=== PATIENT | female | born 1965 | race Caucasian/White ===

== ENCOUNTER 2016-10-01 16:15 | Outpatient (RCR) | payer MEDICARE, OTHER | END 2016-10-01 18:00 | disposition home or self-care (01) | LOC: PT 16:15 | PROVIDERS: ATTEND Podiatrist | DX: T81.31XD Disruption of external operation (surgical) wound, not elsewhere classified, subsequent encounter (principal) | CPT/HCPCS: 97001; 97530; 97597; 97605; G8990; G8991 ==

== ENCOUNTER 2017-01-05 11:29 | Emergency (ER) | payer MEDICARE ==
[~2017-01-05] VITALS: Ht 172.7 cm; Wt 118.2 kg
[~2017-01-05 11:29] MED LIST: ACET1TAB43 PO; ALBU8.5H2 IH; AMIT100T2 PO; CLON0.5T3 PO; GBPN600T PO; LSNP20T PO; METF-759 PO; MULT-890 PO; OMG1KC PO; OXAP600T PO; PANT40SU PO; PARO30TA74 PO; RSP3T PO; TRAM100C3 PO
--- OUTSIDE RECORDS SUMMARY | 2017-01-05 11:33 | XMS REPORT | Summary of Care ---
Author Author Ankit Lopez M.D. Organization Unknown Address [address], [place] [id number] Phone Unavailable Care Team Providers Care Smt Machine Operator Name Role Phone Abdon Zuluaga M.D. Unavailable Unavailable Alex Lopez M.D. Unavailable Unavailable Roby Bray Unavailable Unavailable Unavailable Unavailable Functional Status Name Dates Details Functional status health issues are not documented Status: Name Dates Details Cognitive status health issues are not documented Status: Problems Name Dates Details Bipolar disorder (manic depression) (296.80, F31.9) Status: Active Chronic obstructive pulmonary disease (496, J44.9) Status: Active Foot pain (729.5, M79.673) Status: Active GERD (gastroesophageal reflux disease) (530.81, K21.9) Status: Active Hyperlipidemia (272.4, E78.5) Status: Active Knee pain (719.46, M25.569) Status: Active Proteinuria (791.0, R80.9) Status: Active Restless leg syndrome (333.94, G25.81) Status: Active Obesity, morbid (more than 100 lbs over ideal weight or BMI > 40) (278.01, E66.01) Status: Active Osteoarthritis of knees, bilateral (715.96, M17.0) Status: Active Medications Name Dates Details ClonazePAM 0.5 MG Oral Tablet Dispersible Refills: 0 Zan M.D., oRmario Start Active PARoxetine HCl - 30 MG Oral Tablet TAKE 1 TABLET DAILY. Refills: 0 Zan M.Nadiya alonso Start Active RisperiDONE 3 MG Oral Tablet TAKE 1 TABLET TWICE DAILY. Refills: 0 Zan Naylor.Romario Hearn Start Active Glucophage XR 500 MG Oral Tablet Extended Release 24 Hour TAKE 1 TABLET DAILY DIRECTED. Refills: 0 Zan Naylor.Romario Hearn Start Active ProAir RespiClick 108 (90 Base) MCG/ACT Inhalation Aerosol Powder Breath Activated Refills: 0 [facility] M.D., [facility] Active TraMADol HCl - 50 MG Oral Tablet TAKE 1 TABLET Every 6 hours Quantity: 30 Refills: 0 [facility] M.D., [facility] Active Tylenol with Codeine #3 300-30 MG Oral Tablet TAKE 1 TO 2 TABLETS EVERY 6 HOURS NEEDED FOR PAIN. Refills: 0 [facility] M.D., [facility] Active Amitriptyline HCl - 100 MG Oral Tablet TAKE 1 TABLET AT BEDTIME. Refills: 0 [facility] M.D., [facility] Active Lisinopril 20 MG Oral Tablet TAKE 1 TABLET DAILY. Refills: 0 [facility] M.D., [facility] Active Gabapentin 600 MG Oral Tablet TAKE 1 TABLET 3 TIMES DAILY. Refills: 0 [facility] M.D., [facility] Active Protonix 40 MG Oral Tablet Delayed Release TAKE 1 TABLET DAILY. Refills: 0 [facility] M.D., [facility] Active Spiriva HandiHaler 18 MCG Inhalation Capsule INHALE CONTENTS OF 1 CAPSULE ONCE DAILY. Refills: 0 [facility] M.D., [facility] Active Symbicort 160-4.5 MCG/ACT Inhalation Aerosol INHALE 2 PUFFS TWICE DAILY. RINSE MOUTH AFTER USE. Refills: 0 [facility] M.D., [facility] Active Allergies and Adverse Reactions Name Dates Details Daypro (Allergy) Status: Active Depakote (Allergy) Status: Active Past Medical History Name Dates Details History of Anxiety (300.00, F41.9) Status: Resolved History of chronic obstructive lung disease (V12.69, Z87.09) Status: Resolved History of depression (V11.8, Z86.59) Status: Resolved History of diabetes mellitus (V12.29, Z86.39) Status: Resolved History of hypertension (V12.59, Z86.79) Status: Resolved History of sleep apnea (V13.89, Z87.09) Status: Resolved History of Stomach problems (536.9, K31.9) Status: Resolved Procedures Procedure Dates Details History of Appendectomy History of Tubal Ligation History of Rotator Cuff Repair Procedures not documented Immunization Name Dates Details Immunizations not documented Family History Name Dates Details Family history of malignant neoplasm of breast (V16.3, Z80.3) Status: Active Family history of diabetes mellitus (V18.0, Z83.3) Status: Active Name Dates Details Family history of hypertension (V17.49, Z82.49) Status: Active Family history of hyperlipidemia (V18.19, Z83.49) Status: Active Name Dates Details Family history of fibromyalgia (V17.89, Z82.69) Status: Active Social History Name Dates Details Unknown if ever smoked Vital Signs Date Test Result Details No Known Vitals to report Results Date Description Value Details Results not documented Plan of Care Name Dates Details Planned Observations ECG/ EKG (Specialists) On 09-Jun-2016 Intent Planned Goals not documented Interventions Provided Labs/Procedures/ImagingXRay CHEST-PA & LAT; To be Done: 09 Jun 2016 Instructions Name Dates Details Instructions not documented Encounters Appointment; Abdon Zuluaga M.D. Encounter Diagnosis: Problem not documented On 11:30
[2017-01-05] MEDS ORDERED: ONDANSETRON 2 MG/ML (Z0FRAN) 2 ML VIAL IV ONE (11:55)
[2017-01-05] MEDS ORDERED: SODIUM CHLORIDE FLUSH 3 ML SYR IV PRN (11:55)
[2017-01-05] MEDS: morphine INJ 2 MG/ML 1 ML SYRINGE IV PRN ×2 (12:00→13:37)
[2017-01-05] MEDS ORDERED: OMEP40CA36 PO (12:02)
[2017-01-05 12:03] LABS: BASOPHILS % (AUTO) 0 % (0-2); EOSINOPHILS # (AUTO) 0.2 10^3uL; EOSINOPHILS % (AUTO) 2 % (0-4); LYMPHOCYTES # (AUTO) 2.4 X10^3; MEAN CORPUSCULAR HEMOGLOBIN 29.6 PG (26.0-34.0); MEAN CORPUSCULAR HGB CONC 33.1 g/dL (31.0-37.0); MEAN CORPUSCULAR VOLUME 89 FL (80-100); MEAN PLATELET VOLUME 9.4 FL (6.0-9.5); MONOCYTES # (AUTO) 0.6 X10^3; MONOCYTES % (AUTO) 6 % (3-11); NEUTROPHILS # (AUTO) 7.5 X10^3; NEUTROPHILS % (AUTO) 70 % (51-67); PLATELET COUNT 266 10^3uL (150-450); WHITE BLOOD COUNT 10.77 10^3uL (4.0-11.0)
[2017-01-05 12:12] LABS: ALBUMIN 4.5 g/dL (3.4-5.0); ANION GAP 17.2 MEQ/L (3-15); CALCULATED IONIZED CALCIUM 4.1 mg/dL (3.8-4.6); TOTAL PROTEIN 7.6 g/dL (6.4-8.5)
[2017-01-05 12:33] LABS: BILIRUBIN,URINE Negative (Negative); CLARITY,URINE Clear; COLOR,URINE Yellow; GLUCOSE, URINE (UA) Negative (Negative); LEUKOCYTE ESTERASE ,URINE Negative (Negative); UROBILINOGEN,URINE 0.2 mg/dL (0.2-1.0)
--- NOTE | 2017-01-05 12:46 | Diagnostic Imaging Report ---
PROCEDURE: US abdomen complete. TECHNIQUE: Multiple real-time grayscale images were obtained over the abdomen in various projections. INDICATION: Epigastric pain. COMPARISON: CT abdomen pelvis from 03/15/2010 FINDINGS: The liver demonstrates mild diffuse increased echogenicity, suggestive of hepatic steatosis. There is a well-circumscribed anechoic cyst in the posterior left hepatic lobe measuring 3.2 x 3.0 x 3.3 cm. No concerning hepatic lesions. The main portal vein is patent with antegrade flow. The gallbladder is distended without gallstones, wall thickening, or pericholecystic fluid. There is a 2 mm nodular focus along the gallbladder body which may represent a tiny polyp. The common bile duct measures up to 0.3 cm in diameter. No intrahepatic biliary dilation. The visualized portions of the pancreas are normal. Portions of the head and tail are obscured by overlying bowel gas. The kidneys are normal in size. No hydronephrosis, shadowing calculi, or suspicious mass lesion. The spleen is normal in size (11 cm) and without focal lesion. The aorta and IVC are normal in caliber where seen. IMPRESSION: 1. No cholelithiasis or evidence of acute cholecystitis. Normal caliber common bile duct. 2. Punctate 2 mm nodular focus within the lumen of the gallbladder likely represents a tiny benign polyp. 3. Suggestion of diffuse hepatic steatosis. There is a benign simple cyst in the left hepatic lobe. Dictated by: Dictated on workstation # [id number]
[2017-01-05] MEDS ORDERED: HYDR-33 PO (13:31)
[2017-01-05] MEDS ORDERED: SUCR1TAB29 PO (13:31)
[2017-01-05 13:38] VITALS: BP 123/88
== END 2017-01-05 13:44 | disposition home or self-care (01) ==
LOC: ED 11:31
DX: R10.11 Right upper quadrant pain (principal)
CPT/HCPCS: 36415; 76700; 80053; 81003; 83690; 85025; 96374; 96375; 96376; 99283; J2270; J2405

== ENCOUNTER 2017-01-14 07:22 | Day surgery (SDC) | payer MEDICARE ==
[2017-01-14] VITALS (8 sets, daily range): BP systolic 102–119; BP diastolic 2–74
[~2017-01-14] VITALS: Ht 172.7 cm; Wt 115.0 kg
[~2017-01-14 07:22] MED LIST changes: +HYDR-33 PO; +LACTATED RINGERS 1,000 ML IV SCH; +OMEP40CA36 PO; +SODIUM CHLORIDE FLUSH 3 ML SYR IV PRN; +SUCR1TAB29 PO
[2017-01-14] MEDS ORDERED: ALFENTANIL 500 MCG/ML (ALFENTA) 5 ML AMP IV ONE (08:10)
[2017-01-14] MEDS ORDERED: PROPOFOL 20 ML IV ONE (08:10)
[2017-01-14] MEDS ORDERED: MIDAZOLAM 2 MG/2 ML (VERSED) VIAL ONE (08:10)
[2017-01-14] MEDS ORDERED: SIMETHICONE 40 MG/0.6 ML (MYLICON DROPS) ORAL SYRINGE ONE (08:34)
[2017-01-14] MEDS ORDERED: LIDOCAINE 4% TOPICAL 4.5 ML SYR ONE (08:34)
--- NOTE | 2017-01-14 11:51 | OPERATIVE REPORT ---
DATE OF OPERATION: 01/14/2017 PRE-OPERATIVE DIAGNOSIS: 1. Intractable reflux. 2. Upper abdominal pain. 3. Nausea and vomiting. POST-OPERATIVE DIAGNOSIS: 1. Erosive distal esophagitis. 2. Hiatal hernia. 3. Duodenal diverticulum. OPERATIVE PROCEDURE: Esophagogastroduodenoscopy with biopsies SURGEON: Ankit Barillas MD ANESTHESIA: IV conscious sedation (Monitored Anesthesia Services) POSITION: Semi-recumbent, with slight left rotation ESTIMATED BLOOD LOSS: Minimal FINDINGS: 1. Erosive distal esophagitis, (LA Class C). 2. Normal proximal esophagus. 3. Small hiatal hernia. 4. Normal stomach and duodenum to the second portion, except for the presence of a duodenal diverticulum in the second portion. INDICATIONS: This patient had a long history of reflux, but worse recently with associated nausea, epigastric pain, and vomiting. Evaluation of her gallbladder including ultrasound and a hepatobiliary scan were negative. The patient was started on reflux treatment measures, which has shown slight improvement, but because of a long history of reflux and the other associated symptoms I recommended proceeding with endoscopy. OPERATIVE NOTE: Following satisfaction induction of analgesia a bite block was inserted per os. The gastroscope inserted through the bite block and advanced into the oropharynx. The pharynx, vocal cords and larynx appeared normal. The patient was allowed to swallow the scope, which was advanced through the esophagus, stomach and duodenum to the second potion, including a retroflexed view of the gastric fundus. The above findings were noted. Paper Machine Back Tender photographs were obtained. Separate biopsies were obtained using cold biopsy forceps of the second portion of the duodenum, gastric antrum, distal esophagus and mid esophagus. These were submitted to pathology. Multiple biopsies were obtained of the area of esophagitis. This appeared to involve approximately 50% of the circumference of the GE junction extending approximately 1 cm into the esophagus. The Z-line was approximately 35 cm from the incisors. Good hemostasis was noted at the biopsy sites. The above areas were again carefully inspected including retroflexed view of the gastric fundus. Excess insufflated CO2 was evacuated and the scope removed. The patient tolerated the procedure well and transferred to recovery in stable condition. RECOMMENDATIONS: Pending biopsy results, the patient should continue intensive medical therapy of gastroesophageal reflux disease as previously discussed.
== END 2017-01-14 12:22 | disposition home or self-care (01) ==
LOC: ASC 07:22
PROVIDERS: ATTEND Surgery
DX: K21.0 Gastro-esophageal reflux disease with esophagitis (principal); K22.70 Barrett's esophagus without dysplasia; K57.10 Diverticulosis of small intestine without perforation or abscess without bleeding; K29.30 Chronic superficial gastritis without bleeding; K44.9 Diaphragmatic hernia without obstruction or gangrene; J44.9 Chronic obstructive pulmonary disease, unspecified; I10 Essential (primary) hypertension; E11.9 Type 2 diabetes mellitus without complications; G47.33 Obstructive sleep apnea (adult) (pediatric); F17.210 Nicotine dependence, cigarettes, uncomplicated
CPT/HCPCS: 43239; 88305; 88312; A9270; J2250; J7120